=== PATIENT | female | born 1950 | race Caucasian/White ===

== ENCOUNTER 2017-01-13 10:06 | Inpatient (IN) | payer OTHER, MEDICARE ==
[~2017-01-13] VITALS: Ht 157.5 cm; Wt 105.4 kg
[2017-03-24] MEDS ORDERED: VENL75TA PO (15:45)
[2017-03-24] MEDS ORDERED: ZANT150T2 PO (15:45)
[2017-03-24] MEDS ORDERED: FURO1TAB62 PO (15:45)
[2017-03-24] MEDS ORDERED: VENL37.5 PO (15:47)
[2017-03-24] MEDS ORDERED: MIRTA15 PO (15:47)
[2017-03-24] MEDS ORDERED: K-TA10TA PO (15:47)
[2017-03-25] MEDS ORDERED: TYLE650T9 PO (05:56)
[2017-03-25 05:57] VITALS: BP 142/77; PULSE 68; RESP 20; TEMP 98; O2SAT 99
[2017-03-25] MEDS ORDERED: INSULIN HUMAN REGULAR 1,000 UNITS/10 ML VIAL SQ PRN (06:00)
[2017-03-25] MEDS ORDERED: LACTATED RINGER'S 1000 ML IV PRN (06:00)
[2017-03-25] MEDS ORDERED: METOPROLOL TARTRATE 25 MG TAB PO PRN (06:00)
[2017-03-25] MEDS ORDERED: CHLORHEXIDINE GLUCONATE 2 % 1 PACK (2 CLOTHS) TOPICAL PRN (06:00)
[2017-03-25] MEDS ORDERED: POVIDONE IODINE 5% (ANTISEPSIS KIT) 4 APPLICATIONS EACH NARE PRN (06:00)
[2017-03-25] MEDS ORDERED: SODIUM CHLORID 0.9% 500 ML IV PRN (06:00)
[2017-03-25] MEDS ORDERED: VANCOMYCIN HCL 1000 MG VIAL ONE (06:04)
[2017-03-25] MEDS ORDERED: SODIUM CHLOR 0.9% 250 ML INJ 250 ML ONE (06:04)
[2017-03-25] MEDS ORDERED: GENTAMICIN SULFATE 80 MG/2 ML VIAL ONE ×2 (06:11→07:39)
[2017-03-25] MEDS ORDERED: ceFAZolin 2 GM PREMIX 50 ML ONE (06:38)
[2017-03-25] MEDS ORDERED: MIDAZOLAM HCL 2 MG/2 ML VIAL ONE (06:48)
[2017-03-25] MEDS ORDERED: DEXAMETHASONE SOD PHOS 4 MG/ML VIAL ONE (06:48)
[2017-03-25] MEDS ORDERED: ACETAMINOPHEN 1000 MG/100 ML VIAL IV ONE (06:48)
[2017-03-25] MEDS ORDERED: fentaNYL CITRATE 250 MCG/5 ML AMP ONE (06:48)
[2017-03-25] MEDS ORDERED: MORPHINE SULFATE 4 MG/ML INJ ONE (06:50)
[2017-03-25] MEDS ORDERED: FAMOTIDINE 20 MG/2 ML VIAL ONE (06:56)
[2017-03-25] MEDS ORDERED: diphenhydrAMINE HCL 50 MG/ML VIAL ONE (06:59)
--- NOTE | 2017-03-25 09:04 | HHI.PR ---
Immediate Post Op Note Procedure Date: Mar 25, 2017 Pre Op Diagnosis: R Hip OA Morbid Obesity Post Op Diagnosis: Same Surgeon: Gunnar Temple MD Hemotherapist(s): Lilia Real PA-C Procedure: R THR Complications: None Specimen(s) removed: None Estimated blood loss: 300cc Anesthesia: General Drains: None Patient to: PACU Patient Condition: Good Implant/Devices: SEE IMPLANT LOG (if applicable) Date/Time of Procedure: SEE SURGICAL CARE RECORD Gunnar Temple MD Mar 25, 2017 09:04
[2017-03-25] MEDS ORDERED: BEDSIDE COMMODE1 MI1 (09:12)
[2017-03-25] MEDS ORDERED: WALKER WHEELS/F1 MIS (09:12)
--- NOTE | 2017-03-25 09:14 | HHI.FF ---
Face to Face Verification Diagnosis: (1) Osteoarthritis of right hip Physical Therapy Gait training, Transfer training, bed to chair Hip: Total hip, Protocol: Right, Posterior hip precautions Right LE Weight Bearing: WB as tolerated Left LE Weight Bearing: WB as tolerated Nursing RN Days per Week: 3 x Week(s): 4 Nursing: Dressing changes (clean incision with alcohol and apply dry sterile dressing ) Additional Instructions Pt/INR q Wednesday and , call/text results to Lilia MORTON [phone] I have seen patient Suzan Owusu on 03/25/17. My clinical findings support the need for the requested home health care services because: Deconditioned w/ increased weakness High risk of falls I certify that my clinical findings support that this patient is homebound because: Post-op weakness Gunnar Temple MD Mar 25, 2017 09:14
[2017-03-25] MEDS ORDERED: Post-op Orders (for Pharmacy) MISC XX ONE (09:15)
[2017-03-25] MEDS ORDERED: ALUMINUM/MAGNESIUM/SIMETH 30 ML CUP PO PRN (09:15)
[2017-03-25] MEDS ORDERED: SODIUM CHLORIDE 0.9% FLUSH 5 ML FLUSH IVF PRN (09:15)
[2017-03-25] MEDS ORDERED: MORPHINE SULFATE 8 MG/ML INJ IM PRN (09:15)
[2017-03-25] MEDS ORDERED: ONDANSETRON HCL 4 MG/2 ML VIAL IVP PRN (09:15)
[2017-03-25] MEDS ORDERED: *ONDANSETRON 4 MG VIAL PERIprocedural Use ONLY ONE (09:27)
[2017-03-25] MEDS ORDERED: PILL SPLITTER OTHER PRN (09:30)
[2017-03-25] MEDS ORDERED: *morphine SULFATE 8 MG/ML PERIprocedure ONLY ONE ×3 (09:34→12:52)
[2017-03-25] MEDS ORDERED: DO NOT ADM ANY ANTICOAGULANT DRUGS PRN (09:45)
[2017-03-25] MEDS: LACTATED RINGER'S 1000 ML INJ 1,000 ML IV SCH (10:00)
[2017-03-25] MEDS ORDERED: FUROSEMIDE 20 MG TAB PO SCH (10:00)
--- NOTE | 2017-03-25 11:34 | RADRPT ---
EXAM DATE/TIME: 03/25/2017 09:26 [place] COMPARISON: None. INDICATIONS : Post op right hip arthroplasty. MEDICAL HISTORY : None. SURGICAL HISTORY : None. ENCOUNTER: Initial ACUITY: 1 day PAIN SCORE: Non-responsive. LOCATION: Right hip FINDINGS: AP and crosstable lateral view of the right hip were obtained and demonstrate the patient status post right hip arthroplasty. The femoral and acetabular components are intact and in normal alignment. Th ere is mild overlying soft tissue swelling. CONCLUSION: Expected postoperative change status post arthroplasty. Froilan Wan MD on March 25, 2017 at 11:32 Board Certified Radiologist. This report was verified electronically.
[2017-03-25] MEDS ORDERED: NEOSTIGMINE 3 MG/3 ML SYR IV ONE (12:30)
[2017-03-25] MEDS ORDERED: ONDANSETRON HCL 4 MG/2 ML VIAL IV PUSH ONE (12:30)
[2017-03-25] MEDS ORDERED: PROPOFOL 200 MG/20 ML AMP IV ONE (12:30)
[2017-03-25] MEDS ORDERED: ePHEDrine/NS 25 MG/5 ML SYR IV ONE (12:30)
[2017-03-25] MEDS ORDERED: PHENYLEPH/NS 1000 MCG/10 ML SYR IV ONE (12:30)
[2017-03-25 14:42] VITALS: BP 120/67; PULSE 68; RESP 18; TEMP 96.3; O2SAT 96
--- NOTE | 2017-03-25 15:40 | PD.CONS ---
HPI Service [facility] Consult Requested By Orthopedic service Reason for Consult Medical management Primary Care Physician Non-Staff Diagnoses: History of Present Illness Patient is a very pleasant 66s years old female with history of depression/ anxiety disorder, gastritis, chronic peripheral edema who for the past year now but had been having increasing right hip pain to the point that she has been having increase difficulty ambulating . For the past year now worsening. Patient states that she tried steroid shots, physical therapy with no relief. Baseline has been using a cane and walker for long distance walk. Finally got admitted today and underwent right hip surgery by Dr. Reza. Patient denies any back pain or incontinence. [facility]. Review of Systems Constitutional: DENIES: Diaphoretic episodes, Fatigue, Fever, Weight gain, Weight loss, Chills, Dizziness, Change in appetite, Night Sweats Endocrine: DENIES: Abnorml menstrual pattern, Heat/cold intolerance, Polydipsia , Polyuria, Polyphagia Eyes: DENIES: Blurred vision, Diplopia, Eye inflammation, Eye pain, Vision loss , Photosensitivity, Double Vision Ears, nose, mouth, throat: DENIES: Tinnitus, Hearing loss, Vertigo, Nasal discharge, Oral lesions, Throat pain, Hoarseness, Ear Pain, Running Nose, Epistaxis, Sinus Pain, Toothache, Odynophagia Respiratory: DENIES: Apneas, Cough, Snoring, Wheezing, Hemoptysis, Sputum production, Shortness of breath Cardiovascular: COMPLAINS OF: Lower Extremity Edema (peripheral edema), DENIES : Chest pain, Palpitations, Syncope, Dyspnea on Exertion, PND, Orthopnea, Claudication Gastrointestinal: DENIES: Abdominal pain, Black stools, Bloody stools, Constipation, Diarrhea, Nausea, Vomiting, Difficulty Swallowing, Anorexia Genitourinary: DENIES: Abnormal vaginal bleeding, Dysmenorrhea, Dyspareunia, Sexual dysfunction, Urinary frequency, Urinary incontinence, Urgency, Hematuria , Dysuria, Nocturia, Vaginal discharge Musculoskeletal: COMPLAINS OF: Joint pain (right hip) Integumentary: DENIES: Abnormal pigmentation, Pruritus, Rash, Nail changes, Breast masses, Breast skin changes, Nipple discharge Hematologic/lymphatic: DENIES: Bruising, Lymphadenopathy Neurologic: DENIES: Abnormal gait, Headache, Localized weakness, Paresthesias, Seizures, Speech Problems, Tremor, Poor Balance Psychiatric: COMPLAINS OF: Anxiety, Depression (history) Past Family Social History Allergies: Coded Allergies: Trazodone (Verified Allergy, Severe, Lethargy, 03/25/17) Past Medical History Depression Anxiety disorder Gastritis Peripheral edema Past Surgical History Gallbladder surgery Partial hysterectomy Reported Medications As outpatient She is on mirtazapine Effexor Zantac Furosemide 20 mg Wednesday Potassium chloride tablet Wednesday next line currently in-house she is on Colace, Coumadin, Ambien, [place] Plus about home medications Family History Noncontributory Social History Denies smoking or alcohol use Physical Exam Vital Signs Vital Signs Date Time Temp Pulse Resp B/P Pulse Ox O2 Delivery O2 Flow Rate FiO2 03/25/17 13:30 65 16 126/58 96 Nasal Cannula 3 03/25/17 12:24 9 14 127/59 96 Nasal Cannula 3 03/25/17 11:15 68 14 126/68 96 Nasal Cannula 3 03/25/17 11:00 78 16 140/65 96 Nasal Cannula 3 03/25/17 10:45 78 16 151/65 96 Nasal Cannula 3 03/25/17 10:30 75 16 146/65 96 Nasal Cannula 3 03/25/17 10:15 72 16 150/67 97 Nasal Cannula 3 03/25/17 10:00 63 16 156/62 97 Nasal Cannula 3 03/25/17 09:45 71 16 128/89 99 Nasal Cannula 3 03/25/17 09:30 74 14 151/65 99 Simple Mask 6 03/25/17 09:15 84 10 175/85 100 Simple Mask 6 03/25/17 09:09 83 7 Simple Mask 6 03/25/17 09:08 98.0 85 10 178/94 94 Nasal Cannula 3 03/25/17 05:57 98.0 68 20 142/77 99 Physical Exam GENERAL: This is a well-nourished, heavyset, in no apparent distress. SKIN: No rashes, ecchymoses or lesions. Cool and dry. HEAD: Atraumatic. Normocephalic. No temporal or scalp tenderness. EYES: Pupils equal round and reactive. Extraocular motions intact. No scleral icterus. No injection or drainage. ENT: Nose without bleeding, purulent drainage or septal hematoma. Throat without erythema, tonsillar hypertrophy or exudate. Uvula midline. Airway patent. NECK: Trachea midline. No JVD or lymphadenopathy. Supple, nontender, no meningeal signs. CARDIOVASCULAR: Regular rate and rhythm without murmurs, gallops, or rubs. RESPIRATORY: Clear to auscultation. Breath sounds equal bilaterally. No wheezes , rales, or rhonchi. GASTROINTESTINAL: Abdomen soft, non-tender, nondistended.. No guarding. MUSCULOSKELETAL: Extremities without clubbing, cyanosis, or edema. No joint tenderness, effusion, or edema noted. No calf tenderness. Negative Homans sign bilaterally. Right hip post op dressing in place NEUROLOGICAL: Awake and alert. Cranial nerves II through XII intact. Motor and sensory grossly within normal limits. Gait testing deferred. Normal speech. Laboratory Laboratory Tests Test 03/25/17 06:00 Blood Type O POSITIVE Antibody Screen NEGATIVE Crossmatch Leukocyte-Reduced Red Blood Cells Blood Bank Comment Imaging Last Impressions Hip and Pelvis X-Ray 03/25/17 0000 Signed Impressions: Service Date/Time: February 09:26 - CONCLUSION: Expected postoperative change status post arthroplasty. Froilan Wan MD Assessment and Plan Assessment and Plan 66-year-old female admitted under orthopedic surgery Status post right hip arthroplasty 03/25 Orthopedic service is following continue on pain when necessary meds PTOT consult. History of gastritis continue on Pepcid 20 mg twice a day History of chronic peripheral edema will continue Lasix 20 mg scheduled for Wednesday along with potassium chloride 10 mEq by mouth Wednesday Check a BMP in a.m. Patient on Coumadin for DVT prophylaxis per orthopedic service technical manager consult for discharge planning patient prefers to go home with home PT arrangements Thank you for this consult we'll follow patient in-house with you Discussed Condition With Patient and sister at bedside Marian Galloway MD Mar 25, 2017 15:40
[2017-03-25 16:13] LABS: PROTHROMBIN TIME - PATIENT 11.4 SEC (9.8-11.6)
[2017-03-25 17:48] VITALS: O2SAT 99
[2017-03-25 20:00] VITALS: BP 137/65; PULSE 64; RESP 18; TEMP 96.3; O2SAT 99
[2017-03-25] MEDS ORDERED: ZOLPIDEM TARTRATE 5 MG TAB PO PRN (21:00)
[2017-03-25] MEDS: ACETAMINOPHEN/HYDROcodone 325 MG/7.5 MG TAB PO PRN (21:09)
[2017-03-25] MEDS: VENLAFAXINE HCL XR 37.5 MG CAP PO SCH (21:09)
[2017-03-25] MEDS: MIRTAZAPINE 15 MG TAB PO SCH (21:10)
[2017-03-25] MEDS: FAMOTIDINE 20 MG TAB PO SCH (21:10)
[2017-03-25 21:50] VITALS: O2SAT 99
[2017-03-26] VITALS (8 sets, daily range): BP systolic 118–142; BP diastolic 41–66; PULSE 70–84; RESP 16–20; TEMP 97–98.6; O2SAT 94–100
[2017-03-26] MEDS: LACTATED RINGER'S 1000 ML INJ 1,000 ML IV SCH ×3 (01:34→21:33)
[2017-03-26] MEDS: ACETAMINOPHEN/HYDROcodone 325 MG/7.5 MG TAB PO PRN ×5 (02:22→21:31)
[2017-03-26] MEDS: VENLAFAXINE HCL XR 75 MG CAP PO SCH (06:00)
[2017-03-26 06:06] LABS: HEMATOCRIT 34.5 % (35.0-46.0); REVIEW FLAG FINAL
[2017-03-26 06:08] LABS: INTERNATIONAL NORMALIZED RATIO 1.1 RATIO; PROTHROMBIN TIME - PATIENT 12.5 SEC (9.8-11.6)
--- NOTE | 2017-03-26 06:48 | PD.ORT.PN ---
Subjective Subjective Remarks c/o post op hip pain would like to be discharged home tomorrow Objective Vitals Vital Signs Date Time Temp Pulse Resp B/P Pulse Ox O2 Delivery O2 Flow Rate FiO2 03/26/17 04:00 97.7 70 18 142/66 98 03/26/17 00:00 98.6 84 18 127/63 97 03/25/17 21:50 99 Nasal Cannula 3.00 03/25/17 20:00 96.3 64 18 137/65 99 03/25/17 17:48 99 Nasal Cannula 3.00 03/25/17 15:25 Nasal Cannula 2.00 03/25/17 14:42 96.3 68 18 120/67 96 03/25/17 14:15 96.4 68 16 128/60 97 Nasal Cannula 3 03/25/17 13:30 65 16 126/58 96 Nasal Cannula 3 03/25/17 12:24 9 14 127/59 96 Nasal Cannula 3 03/25/17 11:15 68 14 126/68 96 Nasal Cannula 3 03/25/17 11:00 78 16 140/65 96 Nasal Cannula 3 03/25/17 10:45 78 16 151/65 96 Nasal Cannula 3 03/25/17 10:30 75 16 146/65 96 Nasal Cannula 3 03/25/17 10:15 72 16 150/67 97 Nasal Cannula 3 03/25/17 10:00 63 16 156/62 97 Nasal Cannula 3 03/25/17 09:45 71 16 128/89 99 Nasal Cannula 3 03/25/17 09:30 74 14 151/65 99 Simple Mask 6 03/25/17 09:15 84 10 175/85 100 Simple Mask 6 03/25/17 09:09 83 7 Simple Mask 6 03/25/17 09:08 98.0 85 10 178/94 94 Nasal Cannula 3 I/O 03/25/17 03/25/17 03/25/17 03/26/17 03/26/17 03/26/17 07:00 15:00 23:00 07:00 15:00 23:00 Intake Total 2020 ml 780 ml 240 ml Output Total 300 ml Balance 1720 ml 780 ml 240 ml Intake Oral 400 ml 780 ml 240 ml IV Total 520 ml Other 1100 ml Output Estimated Blood Loss 300 ml # Voids 2 0 # Bowel Movements 0 0 Result Diagram: 4/28/17 0500 Other Results Laboratory Tests Test 03/25/17 03/26/17 15:45 05:10 Prothrombin Time 11.4 SEC 12.5 SEC (9.8-11.6) (9.8-11.6) Prothromb Time International 1.0 RATIO 1.1 RATIO Ratio Objective Remarks seen by Dr. Gunnar Temple right hip dressings dry and intact +NVI no calf tenderness, neg homans sign Assessment & Plan Assessment and Plan POD # 1 s/p R INDIRA low dose coumadin for dvt prop PT-WBAT anticipate discharge tomorrow with [facility] orthopedically stable Lilia Real Mar 26, 2017 06:48
[2017-03-26 08:03] LABS: BICARBONATE 21.9 MEQ/L (21.0-32.0); POTASSIUM 4.5 MEQ/L (3.5-5.1)
[2017-03-26] MEDS: FAMOTIDINE 20 MG TAB PO SCH ×2 (08:27→21:31)
[2017-03-26] MEDS: WARFARIN SOD 5 MG TAB PO SCH ×2 (08:28→15:11)
[2017-03-26] MEDS ORDERED: POTASSIUM CHLORIDE 10 MEQ CONTROLLED RELEASE TAB PO SCH (09:00)
[2017-03-26] MEDS ORDERED: FUROSEMIDE 20 MG TAB PO SCH ×2 (09:00)
[2017-03-26] MEDS: SODIUM CHLORIDE 0.9% FLUSH 5 ML FLUSH IVF SCH ×2 (09:00→21:32)
--- NOTE | 2017-03-26 09:26 | HHI.PR ---
Subjective Remarks pain controlled did very well with PT this am Objective Vitals Vital Signs Date Time Temp Pulse Resp B/P Pulse Ox O2 Delivery O2 Flow Rate FiO2 03/26/17 08:04 97.0 73 16 121/60 100 03/26/17 04:00 97.7 70 18 142/66 98 03/26/17 00:00 98.6 84 18 127/63 97 03/25/17 21:50 99 Nasal Cannula 3.00 03/25/17 20:00 96.3 64 18 137/65 99 03/25/17 17:48 99 Nasal Cannula 3.00 03/25/17 15:25 Nasal Cannula 2.00 03/25/17 14:42 96.3 68 18 120/67 96 03/25/17 14:15 96.4 68 16 128/60 97 Nasal Cannula 3 03/25/17 13:30 65 16 126/58 96 Nasal Cannula 3 03/25/17 12:24 9 14 127/59 96 Nasal Cannula 3 03/25/17 11:15 68 14 126/68 96 Nasal Cannula 3 03/25/17 11:00 78 16 140/65 96 Nasal Cannula 3 03/25/17 10:45 78 16 151/65 96 Nasal Cannula 3 03/25/17 10:30 75 16 146/65 96 Nasal Cannula 3 03/25/17 10:15 72 16 150/67 97 Nasal Cannula 3 03/25/17 10:00 63 16 156/62 97 Nasal Cannula 3 03/25/17 09:45 71 16 128/89 99 Nasal Cannula 3 03/25/17 09:30 74 14 151/65 99 Simple Mask 6 I/O 03/25/17 03/25/17 03/25/17 03/26/17 03/26/17 03/26/17 07:00 15:00 23:00 07:00 15:00 23:00 Intake Total 2020 ml 780 ml 240 ml Output Total 300 ml Balance 1720 ml 780 ml 240 ml Intake Oral 400 ml 780 ml 240 ml IV Total 520 ml Other 1100 ml Output Estimated Blood Loss 300 ml # Voids 2 0 # Bowel Movements 0 0 Result Diagram: 03/26/17 0500 03/26/17 0500 Imaging Last Impressions Hip and Pelvis X-Ray 03/25/17 0000 Signed Impressions: Service Date/Time: February 09:26 - CONCLUSION: Expected postoperative change status post arthroplasty. Froilan Wan MD Objective Remarks GENERAL: not in acute distress SKIN: Warm and dry. HEAD: Normocephalic. EYES: No scleral icterus. No injection or drainage. NECK: Supple, trachea midline. No JVD or lymphadenopathy. CARDIOVASCULAR: Regular rate and rhythm without murmurs, gallops, or rubs. RESPIRATORY: Breath sounds equal bilaterally. No accessory muscle use. GASTROINTESTINAL: Abdomen soft, non-tender, nondistended. MUSCULOSKELETAL: No cyanosis, or edema. right hip dressing in place- no calf tenderness BACK: Nontender without obvious deformity. No CVA tenderness. Procedures 03/25- right hip arthroplasty A/P Assessment and Plan 66-year-old female admitted under orthopedic surgery Status post right hip arthroplasty 03/25 Orthopedic service is following continue on pain when necessary meds PT daily History of gastritis continue on Pepcid 20 mg twice a day History of chronic peripheral edema continue Lasix 20 mg scheduled for Wednesday along with potassium chloride 10 mEq by mouth Wednesday Patient on Coumadin for DVT prophylaxis per orthopedic service flight kitchen manager arranging DME- for discharge possibly tomorrow - home with home PT arrangements Discussed Condition With Patient and sister at bedside Marian Galloway MD Mar 26, 2017 09:26
[2017-03-26] MEDS: VENLAFAXINE HCL XR 37.5 MG CAP PO SCH (21:31)
[2017-03-26] MEDS: MIRTAZAPINE 15 MG TAB PO SCH (21:31)
[2017-03-26] MEDS: DOCUSATE SODIUM 100 MG CAP PO SCH (21:31)
[2017-03-27] VITALS: BP 119/63; PULSE 80; RESP 20; TEMP 98.1; O2SAT 94
[2017-03-27 04:00] VITALS: BP 132/71; PULSE 84; RESP 18; TEMP 99; O2SAT 97
[2017-03-27] MEDS: ACETAMINOPHEN/HYDROcodone 325 MG/7.5 MG TAB PO PRN ×2 (04:16→10:37)
[2017-03-27] MEDS: VENLAFAXINE HCL XR 75 MG CAP PO SCH (04:16)
[2017-03-27 06:03] LABS: INTERNATIONAL NORMALIZED RATIO 1.3 RATIO; PROTHROMBIN TIME - PATIENT 14.6 SEC (9.8-11.6)
--- NOTE | 2017-03-27 06:17 | PD.ORT.PN ---
Subjective Subjective Remarks patient doing better today, ready to be discharged home today Objective Vitals Vital Signs Date Time Temp Pulse Resp B/P Pulse Ox O2 Delivery O2 Flow Rate FiO2 03/27/17 01:30 Nasal Cannula 2.00 03/27/17 00:00 98.1 80 20 119/63 94 03/26/17 20:00 98.1 80 20 119/63 94 03/26/17 18:17 94 21 03/26/17 16:20 97.9 74 18 120/58 96 03/26/17 13:50 94 21 03/26/17 13:25 16 03/26/17 11:48 98.0 76 18 118/41 97 03/26/17 08:04 97.0 73 16 121/60 100 I/O 03/26/17 03/26/17 03/26/17 03/27/17 03/27/17 03/27/17 07:00 15:00 23:00 07:00 15:00 23:00 Intake Total 240 ml 1080 ml Balance 240 ml 1080 ml Intake Oral 240 ml 1080 ml # Voids 0 5 # Bowel Movements 0 Result Diagram: 03/26/17 0500 03/26/17 0500 Other Results Laboratory Tests Test 03/27/17 05:25 Prothrombin Time 14.6 SEC (9.8-11.6) Prothromb Time International 1.3 RATIO Ratio Objective Remarks seen by Dr. Gunnar Temple resting in bed comfortably right hip dressings dry and intact +NVI no calf tenderness, neg homans sign Assessment & Plan Assessment and Plan POD # 2 s/p R INDIRA low dose coumadin for dvt prop PT-WBAT discharge [facility] stable Lilia Real Mar 27, 2017 06:17
[2017-03-27 08:00] VITALS: BP 126/68; PULSE 88; RESP 16; TEMP 97.7; O2SAT 92
--- NOTE | 2017-03-27 08:25 | HHI.PR ---
Subjective Remarks Patient status post Right Hip arthroplasty. Seen in her bedroom and discussed with nurse Miss Nunes already discharged by Attending physician. Objective Vital Signs Date Time Temp Pulse Resp B/P Pulse Ox O2 Delivery O2 Flow Rate FiO2 03/27/17 04:00 99.0 84 18 132/71 97 03/27/17 01:30 Nasal Cannula 2.00 03/27/17 00:00 98.1 80 20 119/63 94 03/26/17 20:00 98.1 80 20 119/63 94 03/26/17 18:17 94 21 03/26/17 16:20 97.9 74 18 120/58 96 03/26/17 13:50 94 21 03/26/17 13:25 16 03/26/17 11:48 98.0 76 18 118/41 97 I/O 03/26/17 03/26/17 03/26/17 03/27/17 03/27/17 03/27/17 07:00 15:00 23:00 07:00 15:00 23:00 Intake Total 240 ml 1080 ml Balance 240 ml 1080 ml Intake Oral 240 ml 1080 ml # Voids 0 5 # Bowel Movements 0 Result Diagram: 03/26/17 0500 03/26/17 0500 Imaging Last Impressions Hip and Pelvis X-Ray 03/25/17 0000 Signed Impressions: Service Date/Time: February 09:26 - CONCLUSION: Expected postoperative change status post arthroplasty. Froilan Wan MD Procedures 03/25- right hip arthroplasty Other Results Laboratory Tests Test 03/25/17 03/26/17 03/27/17 06:00 05:00 05:25 Blood Type O POSITIVE Antibody Screen NEGATIVE Crossmatch Leukocyte-Reduced Red Blood Cells Blood Bank Comment Hemoglobin 10.9 GM/DL Hematocrit 34.5 % Sodium Level 141 MEQ/L Potassium Level 4.5 MEQ/L Chloride Level 105 MEQ/L Carbon Dioxide Level 21.9 MEQ/L Anion Gap 14 MEQ/L Blood Urea Nitrogen 12 MG/DL Creatinine 0.86 MG/DL Estimat Glomerular Filtration 66 ML/MIN Rate Random Glucose 117 MG/DL Calcium Level 8.9 MG/DL Prothrombin Time 14.6 SEC Prothromb Time International 1.3 RATIO Ratio Objective Remarks GENERAL: not in acute distress SKIN: Warm and dry. HEAD: Normocephalic. EYES: No scleral icterus. No injection or drainage. NECK: Supple, trachea midline. No JVD or lymphadenopathy. CARDIOVASCULAR: Regular rate and rhythm without murmurs, gallops, or rubs. RESPIRATORY: Breath sounds equal bilaterally. No accessory muscle use. GASTROINTESTINAL: Abdomen soft, non-tender, nondistended. MUSCULOSKELETAL: No cyanosis, or edema. right hip dressing in place- no calf tenderness BACK: Nontender without obvious deformity. No CVA tenderness. Medications and IVs Current Medications Medications (Trade) Dose Ordered Sig/Adelia Route Start Time Stop Time Status Last Admin (Remeron) 7.5 mg HS PO 03/25/17 21:00 03/26/17 21:31 (Pepcid) 20 mg BID PO 03/25/17 21:00 03/26/17 21:31 (Effexor Xr) 37.5 mg HS PO 03/25/17 21:00 03/26/17 21:31 Venlafaxine HCl 150 mg 150 mg DAILY@06 PO 03/26/17 06:00 03/27/17 04:16 (Lr 1000 ml Inj) 1,000 ml @ 80 mls/hr [id number] IV 03/25/17 09:01 03/26/17 01:34 (NS Flush) 2 ml UNSCH PRN IVF 03/25/17 09:15 (NS Flush) 2 ml BID IVF 03/25/17 09:15 (Coumadin) Follow Sliding Scale... DAILY@1600 PO 03/26/17 10:00 03/26/17 08:28 (Morphine Inj) 4 mg Q3H PRN IM 03/25/17 09:15 03/25/17 23:37 ([place] 7.5-325 Mg) 1 tab Q4H PRN PO 03/25/17 09:15 03/26/17 02:22 ([place] 7.5-325 Mg) 2 tab Q4H PRN PO 03/25/17 09:15 03/27/17 04:16 (Zofran Inj) 4 mg Q6H PRN IVP 03/25/17 09:15 (Colace) 100 mg BID PO 03/26/17 21:00 03/26/17 21:31 (Mag-Al Plus Susp Liq) 30 ml Q6H PRN PO 03/25/17 09:15 (Ambien) 5 mg HS PRN PO 03/25/17 21:00 (Pill Splitter) 1 ea UNSCH PRN OTHER 03/25/17 09:30 (Lasix) 20 mg MoWeFr@09 PO 03/26/17 09:00 03/26/17 08:27 (KCl) 10 meq MoWeFr@09 PO 03/26/17 09:00 03/26/17 08:27 A/P Assessment and Plan Status post right hip arthroplasty 03/25 Orthopedic service is following continue on pain when necessary meds PT daily Gastritis by history continue on Pepcid 20 mg twice a day Chronic peripheral edema Improving. continue Lasix 20 mg scheduled for Wednesday along with potassium chloride 10 mEq by mouth Wednesday LYNETTE may have LYNETTE will need to follow with PCP for outpatient Polysomnography and CPAP if indicated at this time at room air no hypoxia Patient on Coumadin for DVT prophylaxis per orthopedic service survey research manager arranging DME- for discharge possibly tomorrow - home with home PT arrangements Discussed Condition With Patient and nurse Miss Nunes Discharge Planning Hospitalist Cleared for discharge. Remi Long MD Mar 27, 2017 08:25
[2017-03-27] MEDS: SODIUM CHLORIDE 0.9% FLUSH 5 ML FLUSH IVF SCH (09:00)
[2017-03-27] MEDS ORDERED: HYDR-3288 PO (10:01)
[2017-03-27] MEDS ORDERED: COUM5TAB PO (10:02)
[2017-03-27] MEDS: DOCUSATE SODIUM 100 MG CAP PO SCH (10:35)
[2017-03-27] MEDS: FAMOTIDINE 20 MG TAB PO SCH (10:35)
[2017-03-27] MEDS: LACTATED RINGER'S 1000 ML INJ 1,000 ML IV SCH (10:36)
[2017-03-27 12:00] VITALS: BP 129/52; PULSE 77; RESP 16; TEMP 98.3; O2SAT 92
--- NOTE | 2017-03-27 18:33 | MP ---
cc: MEGGAN TEMPLE MICHAEL MD ([phone] - fax # Dr. De Oliveira) DATE OF SURGERY 03/25/17 PREOPERATIVE DIAGNOSIS 1. Right hip osteoarthritis. 2. Morbid obesity POSTOPERATIVE DIAGNOSIS 1. Right hip osteoarthritis. 2. Morbid obesity PROCEDURE Right total hip arthroplasty. SURGEON Lala Temple MD ABRASIVE GRADER HELPER Christal Real, PAC SPECIMENS None. ESTIMATED BLOOD LOSS 300 ml. COMPLICATIONS None ANESTHESIA General DRAIN None. CONDITION Stable PLAN OF ACTIVITY As per orders. PROCEDURE IN DETAIL The patient brought into the operating room, had satisfactory general endotracheal anesthesia by Dr. Flanagan, Department of Anesthesia. The patient was placed in the lateral decubitus position. Because of the patient's morbid obesity, great care was made to protect all pressure points. The right hip and lower extremity was prepped and draped in the usual sterile manner. A posterolateral exposure to the hip was made. Dissection was carried through excessive amount of adipose tissue down to the underlying fascia. Fascia colt and gluteus christina was incised in line with the skin incision. Trial retractor placed in the wound to allow better exposure. Great care was made to protect the sciatic nerve throughout the entire operative case. The short extensor rotator was removed as a group. A capsulotomy was performed. The hip was dislocated posteriorly. Patient was found to have osteoarthritis involving the hip joint. Osteotomy on the femoral neck was made at the appropriate level. Exposure of the acetabulum was made. Acetabular, labrum and capsule was surgically excised. Using hemispherical reamers, the acetabulum was reamed to 68 mm in outer diameter down to the subchondral plate. Trial reduction made with a bicentric cup with Press-Fit manner which was found to be very stable and satisfactory. Exposure to the proximal femur was made. It was sequentially broached to a #10 femoral component. Trial reduction was made off of the trunnion. Standard offset and a negative three neck 28 mm ball was found to be stable and satisfactory. The hip was reduced. Patient was found to have satisfactory limb length, satisfactory stability and satisfactory range of motion. Hip was again dislocated posteriorly and all trial components were removed. The wound was irrigated with copious amounts of sterile saline solution. The wound itself was dry. The regular components were then inserted. First, the femoral component which was a Biomet taper lock #10 standard offset prosthesis placed in anatomic position with "excellent fit and fill ". Assemblage of the trunnion -3 neck with a ceramic 28 mm head. The hip was then reduced. The patient again was found to have satisfactory limb lengths, satisfactory stability and satisfactory range of motion. The wound was irrigated again with copious amounts of sterile saline antibiotic solution. Wound itself was dry. The short external rotators were repaired back to greater trochanter with drill holes using #2 Tycron suture. The fascia colt and gluteus christina was repaired using #2 Tycron suture. Subcutaneous tissue closed in multiple layers using 0 Vicryl suture. Skin approximated with running subcuticular 2-0 nylon. Sterile dressing was applied. The patient tolerated the procedure well, went to recovery room in stable and satisfactory condition. MD ROB Serrano/ /8:55 AM /6:18 PM
--- NOTE | 2017-04-06 10:20 | HHI.DS ---
Discharge Summary Admission Date Mar 25, 2017 at 05:10 Discharge Date: Mar 27, 2017 Admitting Diagnosis right hip osteoarthritis Diagnosis: (1) Osteoarthritis of right hip Diagnosis: Principal Procedures right total hip arthroplasty Brief History This is a 66 year old female patient who presents with the following history. Patient has long history of bilateral knee and hip pain. She has had right hip intra-articular injection. She has used a walker for many years. She has tried exercise but is unable to lose weight due to hip and knee pain. She has taken anti-inflammatory medications. Imaging xrays of right hip show severe osteoarthritis with joint space narrowing PE at Discharge seen by Dr. Gunnar Temple resting in bed comfortably right hip dressings dry and intact +NVI no calf tenderness, neg homans sign Hospital Course Patient underwent satisfactory anaesthesia by the dept of anaesthesia. She underwent right total hip arthroplasty on the date of admission. She did well following the procedure. She was started on low dose coumadin night before surgery and will be treated with low dose coumadin for four weeks for dvt prop. She was started with full weight bearing ambulation on POD #1. She was also treated with sequentials and knee high TEDs during her stay and was seen by medical team. She progressed well and was discharged on pod #2 in stable condition with home health care nursing and PT. Pt Condition on Discharge: Stable Discharge Disposition: Disch w/ Home Health Serv Discharge Instructions Diet Instructions: Coumadin (Warfarin) Diet Activities You Can Perform: Weight Bearing as Lilia Mcmahan April 06, 2017 10:20
== END 2017-03-27 14:13 | disposition home health service (06) | DRG 470 ==
LOC: HSDI 03-25 05:10 → N06A 03-25 14:52
PROVIDERS: ADMIT Orthopaedic Surgery Orthopaedic Surgery of the Spine; ATTEND Orthopaedic Surgery Orthopaedic Surgery of the Spine
PROC: 0SR903A Replacement of Right Hip Joint with Ceramic Synthetic Substitute, Uncemented, Open Approach (ICD-10-PCS; principal; 2017-03-25 06:59)
DX: M16.11 Unilateral primary osteoarthritis, right hip (principal); E66.01 Morbid (severe) obesity due to excess calories; K29.70 Gastritis, unspecified, without bleeding; F32.9 Major depressive disorder, single episode, unspecified; F41.9 Anxiety disorder, unspecified; R60.0 Localized edema; G89.18 Other acute postprocedural pain
CPT/HCPCS: 73501; 80048; 85014; 85018; 85610; 86850; 86900; 86901; 86920; 94150; C1776; J0131; J0690; J1100; J1200; J1580; J2250; J2270; J2370; J2405; J2710; J3010; J3370; J7050; J7120; L1830